=== PATIENT | female | born 1990 | race American Indian/Alaskan Native ===

== ENCOUNTER 2019-02-22 05:03 | Emergency (ER) | payer SELFPAY ==
[2019-02-22 05:40] VITALS: BP 134/77
[2019-02-22] MEDS ORDERED: predniSONE 50 MG TAB PO ONE (05:55)
--- NOTE | 2019-02-22 05:55 | Emergency Department Report ---
ED Back Pain/Injury HPI - General Chief Complaint: Back Pain/Injury Stated Complaint: BACK PAIN, LEFT EYE IRRITATION Source: patient Limitations: No Limitations - History of Present Illness Initial Comments: Patient is a 28-year-old -[place] female with a history of hypertension who presents to the ED with complaint of acute onset persistent nontraumatic low back pain for the last 2 weeks, worse in the last 2 days. Patient also complains of left eye pain with purulent discharge and vomiting for the last 2 days. Patient states that she had been taking oral pain medications which are [id number] ibuprofen for the same with mild relief. Patient states that the last time she took ibuprofen worse over 12 hours. Patient states that tonight she could not sleep because of severe pain. Patient denies dizziness, fever, chills, fall, traumatic injury, abdominal pain, hematuria,, dysuria, urinary frequency and urgency, or or heavy lifting. MD Complaint: back pain, other (left eye pain, erythema) -: Sudden, week(s) (2) Similar Symptoms Previously: Yes Place: home Radiation: none Severity: severe Severity scale (0 -10): 7 Quality: sharp, aching Consistency: constant Improves With: none Worsens With: none Context: while lifting, turning/twisting Associated Symptoms: denies other symptoms. denies: weakness, chest pain, numbness, diaphoresis, fever/chills, constipation - Related Data Previous Rx's Medication Instructions Recorded Last Taken Type Baclofen 20 mg PO Q8H PRN #30 tablet 02/22/19 Unknown Rx Gentamicin 0.3% Ophth Soln 1 drops OP Q4H #5 ml 02/22/19 Unknown Rx Ibuprofen [Motrin] 800 mg PO Q8HR PRN #30 tablet 02/22/19 Unknown Rx Prednisone [predniSONE 10 mg 10 mg PO .TAPER #21 tab.ds.pk 02/22/19 Unknown Rx (6-Day Pack, 21 Tabs)] Allergies Allergy/AdvReac Type Severity Reaction Status Date / Time latex Allergy Hives Verified 02/22/19 05:40 ED Review of Systems ROS: Stated complaint: BACK PAIN, LEFT EYE IRRITATION Other details as noted in HPI Comment: All other systems reviewed and negative Constitutional: denies: chills, fever Eyes: eye pain (left eye), eye discharge. denies: vision change ENT: denies: ear pain, throat pain Respiratory: denies: cough, shortness of breath, wheezing Cardiovascular: denies: chest pain, palpitations Endocrine: no symptoms reported Gastrointestinal: denies: abdominal pain, nausea, diarrhea Genitourinary: other. denies: urgency, dysuria, discharge Musculoskeletal: back pain (lower), arthralgia. denies: joint swelling Skin: denies: rash, lesions Neurological: denies: headache, weakness, paresthesias Psychiatric: denies: anxiety, depression Hematological/Lymphatic: denies: easy bleeding, easy bruising ED Past Medical Hx - Past Medical History Previous Medical History?: Yes Hx Hypertension: Yes Hx Asthma: Yes Additional medical history: Obesity - Surgical History Past Surgical History?: No - Social History Smoking Status: Current Every Day Smoker Substance Use Type: Marijuana - Medications Home Medications: Home Medications Medication Instructions Recorded Confirmed Last Taken Type Baclofen 20 mg PO Q8H PRN #30 tablet 02/22/19 Unknown Rx Gentamicin 0.3% Ophth Soln 1 drops OP Q4H #5 ml 02/22/19 Unknown Rx Ibuprofen [Motrin] 800 mg PO Q8HR PRN #30 tablet 02/22/19 Unknown Rx Prednisone [predniSONE 10 mg 10 mg PO .TAPER #21 tab.ds.pk 02/22/19 Unknown Rx (6-Day Pack, 21 Tabs)] ED Physical Exam - General Limitations: No Limitations General appearance: alert, in no apparent distress - Head Head exam: Present: atraumatic, normocephalic, normal inspection - Eye Eye exam: Present: normal appearance, other (mildly erythematous left conjunctiva with traces of matting and purulent discharge.). Absent: PERRL, EOMI, scleral icterus, nystagmus Pupils: Present: normal accommodation - ENT ENT exam: Present: normal exam, normal orophraynx, TM's normal bilaterally, normal external ear exam - Neck Neck exam: Present: normal inspection, full ROM. Absent: lymphadenopathy, thyromegaly - Respiratory Respiratory exam: Present: normal lung sounds bilaterally. Absent: wheezes, rales, stridor, accessory muscle use, decreased breath sounds, prolonged expiratory - Cardiovascular Cardiovascular Exam: Present: regular rate. Absent: normal rhythm, bradycardia, tachycardia, normal heart sounds, diastolic murmur - GI/Abdominal GI/Abdominal exam: Present: soft. Absent: distended, tenderness, guarding, rebound, hyperactive bowel sounds, organomegaly, mass - Extremities Exam Extremities exam: Present: normal inspection, full ROM, normal capillary refill - Back Exam Back exam: Present: normal inspection, tenderness (palpable lumbosacral paraspinal musculoskeletal tenderness), muscle spasm, paraspinal tenderness - Neurological Exam Neurological exam: Present: alert, oriented X3, CN II-XII intact, normal gait, reflexes normal - Psychiatric Psychiatric exam: Present: normal affect - Skin Skin exam: Present: warm, dry, intact, normal color ED Course Vital Signs 02/22/19 05:35 Temperature 98.7 F Pulse Rate 81 Respiratory 18 Rate Blood Pressure 134/77 O2 Sat by Pulse 99 Oximetry - Reevaluation(s) Reevaluation #1: 02/22/19 06:09 This is a 28-year-old -[place] female who presented to the ED with acute onset nontraumatic lower back pain for 2 weeks and erythematous painful left eye. In the ED, patient is alert and oriented 3 and is not in distress. Patient was treated for pain in the ED and discharged home on pain medications and muscle relaxants and advised to follow-up with her primary care physician in 7-10 days for reevaluation or return to the ED immediately if symptoms get worse. ED Medical Decision Making - Medical Decision Making This is a 28-year-old -[place] female who presented to the ED with acute onset nontraumatic lower back pain for 2 weeks and erythematous painful left eye. In the ED, patient is alert and oriented 3 and is not in distress. Patient was treated for pain in the ED and discharged home on pain medications and muscle relaxants and advised to follow-up with her primary care physician in 7-10 days for reevaluation or return to the ED immediately if symptoms get wo rse. - Differential Diagnosis acute low back pain; muscle spasm of back; left conjunctivitis Critical care attestation.: If time is entered above; I have spent that time in minutes in the direct care of this critically ill patient, excluding procedure time. ED Disposition Clinical Impression: Spasm of muscle of lower back Acute low back pain Qualifiers: Back pain laterality: unspecified Sciatica presence: without sciatica Qualified Code(s): M54.5 - Low back pain Acute conjunctivitis, left eye Qualifiers: Acute conjunctivitis type: unspecified Qualified Code(s): H10.32 - Unspecified acute conjunctivitis, left eye Disposition: DC- TO HOME OR SELFCARE Is pt being admited?: No Does the pt Need Aspirin: No Condition: Stable Instructions: Muscle Spasm (ED), Acute Low Back Pain (ED), Conjunctivitis (ED) Additional Instructions: Take medication with food, drink plenty of fluids and follow-up with your primary care physician in 7-10 days for reevaluation. Return to the ED immediately if symptoms get worse. Prescriptions: Baclofen 20 mg PO Q8H PRN #30 tablet PRN Reason: Muscle Spasm Gentamicin 0.3% Ophth Soln 1 drops OP Q4H #5 ml Ibuprofen [Motrin] 800 mg PO Q8HR PRN #30 tablet PRN Reason: Pain , Severe (7-10) Prednisone [predniSONE 10 mg (6-Day Pack, 21 Tabs)] 10 mg PO .TAPER #21 tab.ds.pk Referrals: [facility] [Outside] - 3-5 Days Forms: Work/School Release Form(ED) Time of Disposition: 05:52 Print Language: [place]
[2019-02-22] MEDS ORDERED: KETOROLAC 30 MG/1 ML INJ IM ONE (05:56)
[2019-02-22] MEDS ORDERED: oxyCODONE /ACETAMINOPHEN 5-325MG TAB PO ONE (05:57)
[2019-02-22] MEDS ORDERED: ONDANSETRON 4 MG ODT TAB PO ONE (05:57)
== END 2019-02-22 06:20 | disposition home or self-care (01) ==
LOC: ED 05:03
DX: M62.830 Muscle spasm of back (principal); H10.32 Unspecified acute conjunctivitis, left eye; F17.200 Nicotine dependence, unspecified, uncomplicated; I10 Essential (primary) hypertension; J45.909 Unspecified asthma, uncomplicated; Z91.040 Latex allergy status
CPT/HCPCS: 96372; 99282; J1885; J7512; Q0162